=== PATIENT | female | born 1935 | race Caucasian/White ===

== ENCOUNTER 2017-12-24 13:20 | Inpatient (IN) | payer OTHER, MEDICARE ==
[~2017-12-24] VITALS: Ht 152.4 cm; Wt 53.4 kg
[~2017-12-24 13:20] MED LIST: TAB-TAB PO
[2017-12-24 13:35] VITALS: BP 136/74; PULSE 110; RESP 16; TEMP 98.7; O2SAT 95
[2017-12-24] MEDS ORDERED: ARIC23TA PO (13:50)
[2017-12-24 14:15] VITALS: BP_SYST 128; BP_SYST 134; BP_DIAS 69; BP_DIAS 83; RESP 16
[2017-12-24 14:45] VITALS: O2SAT 96
[2017-12-24] MEDS ORDERED: SODIUM CHLORID 0.9% 500 ML INJ 500 ML IV ONE (14:45)
[2017-12-24 15:03] LABS: AUTOMATED NEUTROPHIL # 8.2 TH/MM3 (1.8-7.7); BASOPHIL # 0.4 TH/MM3 (0-0.2); BASOPHIL % 3.6 % (0.0-2.0); EOSINOPHIL % 0.2 % (0.0-4.0); LYMPH % 11.5 % (9.0-44.0); LYMPHOCYTE # 1.2 TH/MM3 (1.0-4.8); MEAN CELL VOLUME 93.1 FL (80.0-100.0); MEAN CORPUSCULAR HEMOGLOBIN 31.1 PG (27.0-34.0); MEAN CORPUSCULAR HGB CONC 33.4 % (32.0-36.0); MEAN PLATELET VOLUME 9.2 FL (7.0-11.0); MONOCYTE # 0.6 TH/MM3 (0-0.9); NEUT % 78.7 % (16.0-70.0); PLATELET COUNT 276 TH/MM3 (150-450); RED CELL DISTRIBUTION WIDTH 13.7 % (11.6-17.2); WHITE BLOOD COUNT 10.4 TH/MM3 (4.0-11.0)
--- NOTE | 2017-12-24 15:07 | PD ---
HPI Chief Complaint: Dizziness Time Seen by Provider: 14:30 Travel History International Travel<30 days: No Contact w/Intl Traveler<30days: No Traveled to known affect area: No History of Present Illness HPI 82-year-old female that presents to the ED for evaluation of dizziness and fall. Patient had dizziness for the past couple days. Per patient this is new for her. Per family member this is new for her as well. She denies any chest pain or shortness of breath but she states that today she was walking and she started feeling very dizzy and lightheaded and she felt weak on her legs and fell backwards. Hit her head. Unclear if loss of consciousness but she is not sure. She states having some back pain as well as pelvic pain on the right side. No other injuries reported. Per patient the pain is 8 out of 10. Patient was partially cannot sit or stand without having severe dizziness. Patient did suffer a superficial abrasion to the right occipital head. Patient denies any headache. No blurry vision or double vision. No neck pain. No abdominal pain. No bowel movements or urinary issues. No numbness, tingling, weakness. PFSH Past Medical History Alzheimer's Disease: Yes Cardiovascular Problems: No High Cholesterol: Yes (ATTEMPTED TO TAKE STATIN DRUGS- DEVOLPED ALLERGIC REACTION) Cerebrovascular Accident: No Diminished Hearing: No Headaches: No Implanted Vascular Access Dvce: No Kidney Stones: Yes Musculoskeletal: No Psychiatric: No Respiratory: No Migraines: No Renal Failure: Yes (STAGE 4) Seizures: No Tetanus Vaccination: < 5 Years Influenza Vaccination: Yes Past Surgical History Abdominal Surgery: Yes (1999) Cardiac Surgery: No Endocrine Surgery: No Eye Surgery: Yes Oral Surgery: No Thoracic Surgery: No Other Surgery: Yes Social History Alcohol Use: No Tobacco Use: No Substance Use: No Allergies-Medications (Allergen,Severity, Reaction): Coded Allergies: lovastatin (Unverified Allergy, Mild, "STATINS" (FROM EMR), 12/24/17) Uncoded Allergies: STATINS (Allergy, Mild, 03/17/10) Reported Meds & Prescriptions Reported Meds & Active Scripts Active Reported Aricept (Donepezil) 23 Mg Tab 23 Mg PO HS Do not split, crushed or chewed. Review of Systems Except as stated in HPI: all other systems reviewed are Neg Physical Exam Narrative GENERAL: SKIN: Warm and dry. HEAD: Atraumatic. Normocephalic. Patient has a superficial abrasion to the right occipital head. No bleeding at this time. No laceration noted. EYES: Pupils equal and round 4 mm reactive to light and accommodation. No scleral icterus. No injection or drainage. ENT: No nasal bleeding or discharge. Mucous membranes pink and moist. Tongue is midline. No uvula deviation. NECK: Trachea midline. No JVD. CARDIOVASCULAR: Regular rate and rhythm. No murmurs, S3, S4. RESPIRATORY: No accessory muscle use. Clear to auscultation. Breath sounds equal bilaterally. GASTROINTESTINAL: Abdomen soft, non-tender, nondistended. Hepatic and splenic margins not palpable. MUSCULOSKELETAL: Extremities without clubbing, cyanosis, or edema. No obvious deformities. Full range of motion of the upper and lower extremities bilaterally. 2+ pulses bilaterally. No lumbar, thoracic, cervical spine tenderness to palpation. Patient does have reproducible pain on the pelvic area of the right side. Sensation intact bilaterally. NEUROLOGICAL: Awake and alert. No obvious cranial nerve deficits. Motor grossly within normal limits. Five out of 5 muscle strength in the arms and legs. Normal speech. Cannot assess gait as patient cannot stand without weakness to her legs or feeling she is going to passout. PSYCHIATRIC: Appropriate mood and affect; insight and judgment normal. Data Data Last Documented VS Vital Signs Date Time Temp Pulse Resp B/P (MAP) Pulse Ox O2 Delivery O2 Flow Rate FiO2 12/24/17 14:45 96 Room Air 12/24/17 14:15 91 16 94 16 12/24/17 13:35 98.7 Orders Orders Electrocardiogram (12/24/17 14:40) Complete Blood Count With Diff (12/24/17 14:40) Comprehensive Metabolic Panel (12/24/17 14:40) Ckmb (Isoenzyme) Profile (12/24/17 14:40) Troponin I (12/24/17 14:40) Prothrombin Time / Inr (Pt) (12/24/17 14:40) Act Partial Throm Time (Ptt) (12/24/17 14:40) Urinalysis - C+S If Indicated (12/24/17 14:40) Cath For Specimen (12/24/17 14:40) Magnesium (Mg) (12/24/17 14:40) Thyroid Stimulating Hormone (12/24/17 14:40) Chest, Single Ap (12/24/17 14:40) Ct Brain W/O Iv Contrast(Rout) (12/24/17 14:40) Iv Access Insert/Monitor (12/24/17 14:40) Ecg Monitoring (12/24/17 14:40) Oximetry (12/24/17 14:40) Orthostatic Vital Signs (12/24/17 14:40) Pelvis, Ap Only (Routine) (12/24/17 ) Spine, Lumbar Comp W/Obliq (12/24/17 ) Sodium Chlorid 0.9% 500 Ml Inj (Ns 500 M (12/24/17 14:45) CKMB (12/24/17 14:55) CKMB% (12/24/17 14:55) Urine Culture (12/24/17 15:10) Aspirin (Aspirin) (12/24/17 15:45) Ceftriaxone Inj (Rocephin Inj) (12/24/17 15:45) Place In Observation (12/24/17 ) Vital Signs (Adult) Q4H (12/24/17 16:03) Activity Oob With Assistance (12/24/17 16:03) Diet Regular Basic (12/24/17 Dinner) Sodium Chlor 0.9% 1000 Ml Inj (Ns 1000 M (12/24/17 16:03) Sodium Chloride 0.9% Flush (Ns Flush) (12/24/17 16:15) Sodium Chloride 0.9% Flush (Ns Flush) (12/24/17 21:00) Acetaminophen (Tylenol) (12/24/17 16:15) Ondansetron Inj (Zofran Inj) (12/24/17 16:15) Basic Metabolic Panel (Bmp) (12/25/17 06:00) Complete Blood Count With Diff (12/25/17 06:00) Pt Request For Service (12/24/17 16:03) Naloxone Inj (Narcan Inj) (12/24/17 16:15) Sennosides (Senokot) (12/24/17 16:15) Donepezil (Aricept) (12/24/17 21:00) Ceftriaxone Inj (Rocephin Inj) (12/25/17 09:15) Troponin I (12/24/17 18:03) Admit Order (Ed Use Only) (12/24/17 16:07) Labs Laboratory Tests Test 12/24/17 14:55 12/24/17 15:10 White Blood Count 10.4 TH/MM3 Red Blood Count 4.20 MIL/MM3 Hemoglobin 13.0 GM/DL Hematocrit 39.0 % Mean Corpuscular Volume 93.1 FL Mean Corpuscular Hemoglobin 31.1 PG Mean Corpuscular Hemoglobin Concent 33.4 % Red Cell Distribution Width 13.7 % Platelet Count 276 TH/MM3 Mean Platelet Volume 9.2 FL Neutrophils (%) (Auto) 78.7 % Lymphocytes (%) (Auto) 11.5 % Monocytes (%) (Auto) 6.0 % Eosinophils (%) (Auto) 0.2 % Basophils (%) (Auto) 3.6 % Neutrophils # (Auto) 8.2 TH/MM3 Lymphocytes # (Auto) 1.2 TH/MM3 Monocytes # (Auto) 0.6 TH/MM3 Eosinophils # (Auto) 0.0 TH/MM3 Basophils # (Auto) 0.4 TH/MM3 CBC Comment DIFF FINAL Differential Comment Prothrombin Time 10.3 SEC Prothromb Time International Ratio 1.0 RATIO Activated Partial Thromboplast Time 23.4 SEC Blood Urea Nitrogen 34 MG/DL Creatinine 2.00 MG/DL Random Glucose 122 MG/DL Total Protein 8.1 GM/DL Albumin 3.3 GM/DL Calcium Level 10.4 MG/DL Magnesium Level 2.2 MG/DL Alkaline Phosphatase 82 U/L Aspartate Amino Transf (AST/SGOT) 34 U/L Alanine Aminotransferase (ALT/SGPT) 25 U/L Total Bilirubin 0.5 MG/DL Sodium Level 138 MEQ/L Potassium Level 5.1 MEQ/L Chloride Level 104 MEQ/L Carbon Dioxide Level 27.8 MEQ/L Anion Gap 6 MEQ/L Estimat Glomerular Filtration Rate 24 ML/MIN Total Creatine Kinase 176 U/L Creatine Kinase MB 0.8 NG/ML Troponin I 0.12 NG/ML Thyroid Stimulating Hormone 3rd Gen 0.588 uIU/ML Urine Collection Type VOIDED Urine Color YELLOW Urine Turbidity SL CLOUDY Urine pH 7.0 Urine Specific [place] 1.015 Urine Protein 30 mg/dL Urine Glucose (UA) NEG mg/dL Urine Ketones NEG mg/dL Urine Occult Blood MOD Urine Nitrite NEG Urine Bilirubin NEG Urine Urobilinogen 0.2 MG/DL Urine Leukocyte Esterase LARGE Urine WBC 20-24 /hpf Urine WBC Clumps FEW Urine Bacteria MANY /hpf Microscopic Urinalysis Comment CULTURE INDICATED MDM Medical Decision Making Medical Screen Exam Complete: Yes Emergency Medical Condition: Yes Medical Record Reviewed: Yes Interpretation(s) CBC & BMP Diagram 12/24/17 14:55 Total Protein 8.1, Albumin 3.3 L, Calcium Level 10.4 H, Magnesium Level 2.2, Alkaline Phosphatase 82, Aspartate Amino Transf (AST/SGOT) 34, Alanine Aminotransferase (ALT/SGPT) 25, Total Bilirubin 0.5 UA shows possible UTI troponin of 0.12 CK WNL EKG shows sinus rhythm with no sign of acute ischemia or arrythmia read by me and attending. Last Impressions Head CT 12/24/17 1440 Signed Impressions: Service Date/Time: Sunday, December 24, 2017 14:58 - CONCLUSION: 1. Cephalhematoma over the right posterior high parietal region. No associated fracture or intracranial hemorrhage. 2. 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 Franklin Sakrar MD Differential Diagnosis Vertigo versus dizziness versus head injury versus dehydration versus ACS versus arrhythmia versus ICH versus syncope Narrative Course 82-year-old female that presents to the ED for evaluation of head injury and dizziness. Patient was properly examined and was found to have signs and symptoms of unclear etiology at this time. Patient is very dizzy with just sitting and standing. She is weak on her legs when she stands. Unclear etiology of the symptoms but we'll do imaging and labs. Patient agrees. Patient was given 500 bolus of fluid. Labs and imaging showed positive troponin and UTI. Patient told of results. Given aspirin. No chest pain. Will admit for further evaluation. patient and family agree with this. Case discussed with Dr Cruz who agrees to admision. Procedures EKG Prior to Arrival: No Diagnosis Primary Impression: Syncope, near Additional Impressions: UTI (urinary tract infection) Qualified Codes: N30.00 - Acute cystitis without hematuria Elevated troponin I level Admitting Information Admitting Physician Requests: Admit Salvador Malloy Dec 24, 2017 15:07
[2017-12-24 15:16] LABS: CHLORIDE 104 MEQ/L (98-107); SODIUM (NA) 138 MEQ/L (136-145)
[2017-12-24 15:17] LABS: PROTHROMBIN TIME - PATIENT 10.3 SEC (9.8-11.6)
--- NOTE | 2017-12-24 15:18 | RADRPT ---
EXAM DATE/TIME: 12/24/2017 14:58 [facility] COMPARISON: CT BRAIN W/O CONTRAST, March 17, 2010, 8:56. INDICATIONS : Dizziness. Fell and hit head. RADIATION DOSE: 62.07 CTDIvol (mGy) MEDICAL HISTORY : Hypercholesterolemia. Renal failure. SURGICAL HISTORY : None. ENCOUNTER: Initial ACUITY: 1 day PAIN SCALE: 5/10 LOCATION: cranial TECHNIQUE: Multiple contiguous axial images were obtained of the head. Using automated exposure control and adj ustment of the mA and/or kV according to patient size, radiation dose was kept as low as reasonably a chievable to obtain optimal diagnostic quality images. DICOM format image data is available electro nically for review and comparison. 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 No evidence of midline shift, mass lesion, hemorrhage o r acute infarction. No extra-axial fluid collections are seen. POSTERIOR FOSSA: The cerebellum and brainstem are intact. The 4th ventricle is midline. The cerebellopontine angle i s unremarkable. EXTRACRANIAL: The visualized portion of the orbits is intact. SKULL: The calvaria is intact. Cephalhematoma over the right posterior high parietal region No evidence of skull fracture. CONCLUSION: 1. Cephalhematoma over the right posterior high parietal region. No associated fracture or intracrani al hemorrhage. 2. 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 Franklin Sarkar MD on December 24, 2017 at 15:08 Board Certified Radiologist. This report was verified electronically.
[2017-12-24 15:21] LABS: ALBUMIN 3.3 GM/DL (3.4-5.0); BICARBONATE 27.8 MEQ/L (21.0-32.0); BLOOD UREA NITROGEN 34 MG/DL (7-18); CALCIUM 10.4 MG/DL (8.5-10.1); GLUCOSE,RANDOM 122 MG/DL (74-106); MAGNESIUM 2.2 MG/DL (1.5-2.5)
[2017-12-24 15:24] LABS: ALT (GPT) 25 U/L (10-53); AST (GOT) 34 U/L (15-37)
[2017-12-24 15:25] LABS: GLOMERULAR FILTRATION RATE 24 ML/MIN (>89)
[2017-12-24 15:25] LABS: BILIRUBIN, URINE NEG (NEG); BLOOD, URINE MOD (NEG); GLUCOSE,URINE NEG (NEG); KETONE, URINE NEG (NEG); NITRITE,URINE NEG (NEG); URINE COLOR YELLOW (YELLW/STRAW); URINE LEUKOCYTE ESTERASE LARGE (NEG)
[2017-12-24 15:26] LABS: TOTAL BILIRUBIN ADULT 0.5 MG/DL (0.2-1.0); TOTAL PROTEIN 8.1 GM/DL (6.4-8.2)
[2017-12-24 15:27] LABS: ALKALINE PHOSPHATASE 82 U/L (45-117)
[2017-12-24 15:30] LABS: TROPONIN I 0.12 NG/ML (0.02-0.05)
[2017-12-24 15:38] LABS: BACTERIA, URINE MANY /hpf; WHITE BLOOD CELL CLUMPS FEW
[2017-12-24] MEDS ORDERED: ASPIRIN 325 MG TAB PO ONE (15:45)
[2017-12-24] MEDS ORDERED: cefTRIAXone INJ 1,000 MG in SODIUM CHLORIDE 0.9% INJ 100 ML IV ONE (15:45)
--- NOTE | 2017-12-24 15:51 | RADRPT ---
EXAM DATE/TIME: 12/24/2017 15:11 [facility] COMPARISON: No previous studies available for comparison. INDICATIONS : Dizziness, fell to right side. MEDICAL HISTORY : Hypercholesterolemia. Renal failure. SURGICAL HISTORY : None. ENCOUNTER: Initial ACUITY: 1 day PAIN SCORE: 0/10 LOCATION: Bilateral chest FINDINGS: The lungs are clear. The heart is minimally enlarged. The pulmonary vascularity is normal. There is n o evidence for infiltrate or failure. The portion of the bony skeleton visualized is unremarkable. CONCLUSION: Compensated cardiomegaly otherwise negative Zeus Brantley MD FACR on December 24, 2017 at 15:50 Board Certified Radiologist. This report was verified electronically.
[2017-12-24] MEDS: SODIUM CHLOR 0.9% 1000 ML INJ 1,000 ML IV SCH (16:03)
--- NOTE | 2017-12-24 16:05 | RADRPT ---
EXAM DATE/TIME: 12/24/2017 15:11 [facility] COMPARISON: No previous studies available for comparison. INDICATIONS : Dizziness, fell to right side. MEDICAL HISTORY : None. SURGICAL HISTORY : None. ENCOUNTER: Initial ACUITY: 1 day PAIN SCORE: 5/10 LOCATION: Right pelvis FINDINGS: A single frontal view of the pelvis demonstrates no evidence of fracture. The bony pelvic ring is in tact. Bony mineralization is normal. The soft tissues are intact. Degenerative spurring at the SI j oints bilaterally. CONCLUSION: 1. 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 2. No fracture Franklin Sarkar MD on December 24, 2017 at 16:03 Board Certified Radiologist. This report was verified electronically.
--- NOTE | 2017-12-24 16:13 | RADRPT ---
EXAM DATE/TIME: 12/24/2017 15:11 [facility] COMPARISON: No previous studies available for comparison. INDICATIONS : Dizziness, fell to right side. Lower back pain. MEDICAL HISTORY : None. SURGICAL HISTORY : None. ENCOUNTER: Initial ACUITY: 1 day PAIN SCORE: 5/10 LOCATION: lumbar spine. FINDINGS: There are five non-rib bearing vertebral bodies. Vertebral body heights are maintained throughout wit hout fracture. Minimal grade 1 anterolisthesis of L3 on 4 and L4 on 5 multilevel facet hypertrophy. Timber Grader a calcification of the regional vasculature. 1.2 cm calcification in a paraspinal distribution may represent renal calculus. CONCLUSION: 1. Degenerative changes with multilevel facet hypertrophy and a grade 1 anterolisthesis of L3 on 4 an d L4 on 5. 2. No fracture. 3. Possible 1.2 cm left renal calculus. Franklin Sarkar MD on December 24, 2017 at 16:04 Board Certified Radiologist. This report was verified electronically.
[2017-12-24] MEDS ORDERED: SENNOSIDES 8.6 MG TAB PO PRN (16:15)
[2017-12-24] MEDS ORDERED: NALOXONE HCL 0.4 MG/ML AMP IV PUSH PRN (16:15)
[2017-12-24] MEDS ORDERED: SODIUM CHLORIDE 0.9% FLUSH 10 ML FLUSH IV FLUSH PRN (16:15)
[2017-12-24] MEDS ORDERED: ACETAMINOPHEN 325 MG TAB PO PRN (16:15)
--- NOTE | 2017-12-24 16:43 | HHI.HP ---
[facility] Primary Care Physician Maricruz Jensen MD Admission Diagnosis Syncope, dizziness, positive troponin, UTI Diagnoses: Chief Complaint: Dizziness Travel History International Travel<30 Days: No Contact w/Intl Traveler <30 Da: No Traveled to Known Affected Are: No History of Present Illness Patient is an 82-year-old with a history of dementia. She had an episode of dizziness yesterday and again today. She says she fell yesterday but it was not witnessed. Today she fell and hit her head and her back and was brought into the emergency room by emergency medical services with bleeding in her head. There is a large hematoma with laceration but no intracranial bleeding on imaging. Patient is alert oriented and without any findings of stroke clinically. The patient however is quite dizzy. She also has elevated troponin. She will be admitted to the hospital for further evaluation of severe dizziness and treatment of a urinary tract infection. Review of Systems Constitutional: DENIES: Diaphoretic episodes, Fatigue, Fever, Weight gain, Weight loss, Chills, Dizziness, Change in appetite, Night Sweats Endocrine: DENIES: Abnorml menstrual pattern, Heat/cold intolerance, Polydipsia , Polyuria, Polyphagia Eyes: DENIES: Blurred vision, Diplopia, Eye inflammation, Eye pain, Vision loss , Photosensitivity, Double Vision Ears, nose, mouth, throat: DENIES: Tinnitus, Hearing loss, Vertigo, Nasal discharge, Oral lesions, Throat pain, Hoarseness, Ear Pain, Running Nose, Epistaxis, Sinus Pain, Toothache, Odynophagia Respiratory: DENIES: Apneas, Cough, Snoring, Wheezing, Hemoptysis, Sputum production, Shortness of breath Cardiovascular: DENIES: Chest pain, Palpitations, Syncope, Dyspnea on Exertion , PND, Lower Extremity Edema, Orthopnea, Claudication Gastrointestinal: DENIES: Abdominal pain, Black stools, Bloody stools, Constipation, Diarrhea, Nausea, Vomiting, Difficulty Swallowing, Anorexia Genitourinary: DENIES: Abnormal vaginal bleeding, Dysmenorrhea, Dyspareunia, Sexual dysfunction, Urinary frequency, Urinary incontinence, Urgency, Hematuria , Dysuria, Nocturia, Vaginal discharge Musculoskeletal: COMPLAINS OF: Back pain, DENIES: Joint pain, Muscle aches, Stiffness, Joint Swelling, Neck pain Integumentary: DENIES: Abnormal pigmentation, Pruritus, Rash, Nail changes, Breast masses, Breast skin changes, Nipple discharge Hematologic/lymphatic: DENIES: Bruising, Lymphadenopathy Immunologic/allergic: DENIES: Eczema, Urticaria Neurologic: DENIES: Abnormal gait, Headache, Localized weakness, Paresthesias, Seizures, Speech Problems, Tremor, Poor Balance Psychiatric: DENIES: Anxiety, Confusion, Mood changes, Depression, Hallucinations, Agitation, Suicidal Ideation, Homicidal Ideation, Delusions Except as stated in HPI: all other systems reviewed are Neg Past Family Social History Past Medical History Dementia Kidney stones Chronic kidney disease stage III-IV Past Surgical History Lithotripsy Reported Medications Reviewed in the EMR, Aricept Allergies: Coded Allergies: lovastatin (Unverified Allergy, Mild, "STATINS" (FROM EMR), 12/24/17) Uncoded Allergies: STATINS (Allergy, Mild, 03/17/10) Active Ordered Medications Reviewed in the EMR Family History Both her parents lived into their late 90s Social History With her daughter and son, no tobacco or alcohol dependency Physical Exam Vital Signs Vital Signs Date Time Temp Pulse Resp B/P (MAP) Pulse Ox O2 Delivery O2 Flow Rate FiO2 12/24/17 14:45 96 Room Air 12/24/17 14:15 91 16 128/69 (88) 94 16 134/83 (100) 12/24/17 13:35 98.7 110 16 136/74 (94) 95 Physical Exam GENERAL: This is a well-nourished, well-developed patient, in no apparent distress. SKIN: No rashes, ecchymoses or lesions. Cool and dry. HEAD: Occipital hematoma, Normocephalic. No temporal or scalp tenderness. EYES: Pupils equal round and reactive. Extraocular motions intact. No scleral icterus. No injection or drainage. ENT: Nose without bleeding, purulent drainage or septal hematoma. Throat without erythema, tonsillar hypertrophy or exudate. Uvula midline. Airway patent. NECK: Trachea midline. No JVD or lymphadenopathy. Supple, nontender, no meningeal signs. CARDIOVASCULAR: Regular rate and rhythm without murmurs, gallops, or rubs. RESPIRATORY: Clear to auscultation. Breath sounds equal bilaterally. No wheezes , rales, or rhonchi. GASTROINTESTINAL: Abdomen soft, non-tender, nondistended. No hepato-splenomegaly , or palpable masses. No guarding. MUSCULOSKELETAL: Extremities without clubbing, cyanosis, or edema. No joint tenderness, effusion, or edema noted. No calf tenderness. Negative Homans sign bilaterally. NEUROLOGICAL: Awake and alert. Cranial nerves II through XII intact. Motor and sensory grossly within normal limits. Five out of 5 muscle strength in all muscle groups. Normal speech. Laboratory Laboratory Tests Test 12/24/17 14:55 12/24/17 15:10 White Blood Count 10.4 Red Blood Count 4.20 Hemoglobin 13.0 Hematocrit 39.0 Mean Corpuscular Volume 93.1 Mean Corpuscular Hemoglobin 31.1 Mean Corpuscular Hemoglobin Concent 33.4 Red Cell Distribution Width 13.7 Platelet Count 276 Mean Platelet Volume 9.2 Neutrophils (%) (Auto) 78.7 Lymphocytes (%) (Auto) 11.5 Monocytes (%) (Auto) 6.0 Eosinophils (%) (Auto) 0.2 Basophils (%) (Auto) 3.6 Neutrophils # (Auto) 8.2 Lymphocytes # (Auto) 1.2 Monocytes # (Auto) 0.6 Eosinophils # (Auto) 0.0 Basophils # (Auto) 0.4 CBC Comment DIFF FINAL Differential Comment Prothrombin Time 10.3 Prothromb Time International Ratio 1.0 Activated Partial Thromboplast Time 23.4 Blood Urea Nitrogen 34 Creatinine 2.00 Random Glucose 122 Total Protein 8.1 Albumin 3.3 Calcium Level 10.4 Magnesium Level 2.2 Alkaline Phosphatase 82 Aspartate Amino Transf (AST/SGOT) 34 Alanine Aminotransferase (ALT/SGPT) 25 Total Bilirubin 0.5 Sodium Level 138 Potassium Level 5.1 Chloride Level 104 Carbon Dioxide Level 27.8 Anion Gap 6 Estimat Glomerular Filtration Rate 24 Total Creatine Kinase 176 Creatine Kinase MB 0.8 Troponin I 0.12 Thyroid Stimulating Hormone 3rd Gen 0.588 Urine Collection Type VOIDED Urine Color YELLOW Urine Turbidity SL CLOUDY Urine pH 7.0 Urine Specific [employer] 1.015 Urine Protein 30 Urine Glucose (UA) NEG Urine Ketones NEG Urine Occult Blood MOD Urine Nitrite NEG Urine Bilirubin NEG Urine Urobilinogen 0.2 Urine Leukocyte Esterase LARGE Urine WBC 20-24 Urine WBC Clumps FEW Urine Bacteria MANY Microscopic Urinalysis Comment CULTURE INDICATED Date/Time Source Procedure Growth Status 12/24/17 15:10 Urine Random Urine Urine Culture Pending Received Result Diagram: 12/24/17 1455 12/24/17 1455 Imaging Last Impressions Head CT 12/24/17 1440 Signed Impressions: Service Date/Time: Sunday, December 24, 2017 14:58 - CONCLUSION: 1. Cephalhematoma over the right posterior high parietal region. No associated fracture or intracranial hemorrhage. 2. 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 Franklin Sarkar MD Chest X-Ray 12/24/17 1440 Signed Impressions: Service Date/Time: Sunday, December 24, 2017 15:11 - CONCLUSION: Compensated cardiomegaly otherwise negative Zeus Brantley MD FACR Pelvis X-Ray 12/24/17 0000 Signed Impressions: Service Date/Time: Sunday, December 24, 2017 15:11 - CONCLUSION: 1. 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 2. No fracture Franklin Sarkar MD Lumbar Spine X-Ray 12/24/17 0000 Signed Impressions: Service Date/Time: Sunday, December 24, 2017 15:11 - CONCLUSION: 1. Degenerative changes with multilevel facet hypertrophy and a grade 1 anterolisthesis of L3 on 4 and L4 on 5. 2. No fracture. 3. Possible 1.2 cm left renal calculus. MD Adonis Stevens VTE Risk Assessment [place]i VTE Risk Assessment: Mod/High Risk (score >= 2) VTE Pharm Contraindication: Active bleeding Caprini Risk Assessment Model Point Value = 1 Point Value = 2 Point Value = 3 Point Value = 5 Age 41-60 Minor surgery BMI > 25 kg/m2 Swollen legs Varicose veins or History of unexplained or recurrent spontaneous Oral contraceptives or hormone replacement Sepsis (< 1 month) Serious lung disease, including pneumonia (< 1 month) Abnormal pulmonary function Acute myocardial infarction Congestive heart failure (< 1 month) History of inflammatory bowel disease Medical patient at bed rest Age 61-74 Arthroscopic surgery Major open surgery (> 45 min) Laparoscopic surgery (> 45 min) Malignancy Confined to bed (> 72 hours) Immobilizing plaster cast Central venous access Age >= 75 History of VTE Family history of VTE Factor V Leiden Prothrombin [id number] Lupus anticoagulant Anticardiolipin antibodies Elevated serum homocysteine Heparin-induced thrombocytopenia Other congenital or acquired thrombophilia Stroke (< 1 month) Elective arthroplasty Hip, pelvis, or leg fracture Acute spinal cord injury (< 1 month) Prophylaxis Regimen Total Risk Factor Score Risk Level Prophylaxis Regimen 0-1 Low Early ambulation 2 Moderate Order ONE of the following: *Sequential Compression Device (SCD) *Heparin 5000 units SQ BID 3-4 Higher Order ONE of the following medications: *Heparin 5000 units SQ TID *Enoxaparin/Lovenox 40 mg SQ daily (WT < 150 kg, CrCl > 30 mL/min) *Enoxaparin/Lovenox 30 mg SQ daily (WT < 150 kg, CrCl > 10-29 mL/min) *Enoxaparin/Lovenox 30 mg SQ BID (WT < 150 kg, CrCl > 30 mL/min) AND/OR *Sequential Compression Device (SCD) 5 or more Highest Order ONE of the following medications: *Heparin 5000 units SQ TID (Preferred with Epidurals) *Enoxaparin/Lovenox 40 mg SQ daily (WT < 150 kg, CrCl > 30 mL/min) *Enoxaparin/Lovenox 30 mg SQ daily (WT < 150 kg, CrCl > 10-29 mL/min) *Enoxaparin/Lovenox 30 mg SQ BID (WT < 150 kg, CrCl > 30 mL/min) AND *Sequential Compression Device (SCD) Assessment and Plan Problem List: (1) Syncope, near ICD Code: R55 - Syncope and collapse Status: Acute Plan: Etiology unclear may be cardiogenic v tia v infection MRI brain pending Echo pending Follow-up treatment of urinary tract infection (2) Elevated troponin I level ICD Code: R74.8 - Abnormal levels of other serum enzymes Status: Acute Plan: Patient without any complaints of chest pain or shortness of breath. She has dementia and is difficult to get a history but per the daughter she has not had any other complaints. We will follow-up cardiac echo, repeat cardiac troponins. She would not prefer any invasive studies. EKG my review shows no ischemic changes consistent does not show ischemic changes (3) UTI (urinary tract infection) ICD Code: N39.0 - Urinary tract infection, site not specified Status: Acute Plan: Continue Rocephin IV and follow-up cultures (4) Hypercalcemia ICD Code: E83.52 - Hypercalcemia Plan: We will continue IV fluids and recheck Code Status DNR Discussed Condition With Patient, daughter, ERMD Physician Certification 2 Midnight Certification Type: Admission for Inpatient Services Order for Inpatient Services The services are ordered in accordance with Medicare regulations or non- Medicare payer requirements, as applicable. In the case of services not specified as inpatient-only, they are appropriately provided as inpatient services in accordance with the 2-midnight benchmark. Estimated LOS (days): 3 3 days is the estimated time the patient will need to remain in the hospital, assuming treatment plan goals are met and no additional complications. Post-Hospital Plan: Home (3) Problem Qualifiers (1) UTI (urinary tract infection): Qualified Codes: N30.00 - Acute cystitis without hematuria Annalisa Cruz MD Dec 24, 2017 16:42
[2017-12-24 16:45] VITALS: BP 138/80; PULSE 87; RESP 16; O2SAT 96
[2017-12-24 17:00] VITALS: BP 122/69; PULSE 86; RESP 15; TEMP 99.3; O2SAT 93
[2017-12-24 19:53] LABS: CALCIUM 9.4 MG/DL (8.5-10.1); TROPONIN I 0.11 NG/ML (0.02-0.05)
[2017-12-24 20:00] VITALS: BP 110/67; PULSE 91; RESP 16; TEMP 96.9; O2SAT 96
[2017-12-24] MEDS: SODIUM CHLORIDE 0.9% FLUSH 10 ML FLUSH IV FLUSH SCH (21:00)
[2017-12-24] MEDS: DONEPEZIL HCL 23 MG TAB PO SCH (21:29)
[2017-12-25] VITALS: BP 115/66; PULSE 83; RESP 16; TEMP 97.1; O2SAT 97
[2017-12-25] MEDS: SODIUM CHLOR 0.9% 1000 ML INJ 1,000 ML IV SCH ×3 (01:59→21:48)
[2017-12-25] MEDS: ONDANSETRON HCL 4 MG/2 ML VIAL IVP PRN ×2 (02:13→08:49)
[2017-12-25 06:39] LABS: AUTOMATED NEUTROPHIL # 7.1 TH/MM3 (1.8-7.7); BASOPHIL % 0.2 % (0.0-2.0); EOSINOPHIL % 0.5 % (0.0-4.0); HEMATOCRIT 34.5 % (35.0-46.0); HEMOGLOBIN 11.7 GM/DL (11.6-15.3); LYMPH % 11.8 % (9.0-44.0); MEAN CELL VOLUME 93.3 FL (80.0-100.0); MEAN CORPUSCULAR HEMOGLOBIN 31.6 PG (27.0-34.0); MEAN CORPUSCULAR HGB CONC 33.8 % (32.0-36.0); MEAN PLATELET VOLUME 9.1 FL (7.0-11.0); MONO % 5.5 % (0.0-8.0); MONOCYTE # 0.5 TH/MM3 (0-0.9); PLATELET COUNT 237 TH/MM3 (150-450); RED CELL DISTRIBUTION WIDTH 13.5 % (11.6-17.2); WHITE BLOOD COUNT 8.6 TH/MM3 (4.0-11.0)
[2017-12-25 06:54] LABS: CALCIUM 9.1 MG/DL (8.5-10.1)
[2017-12-25 06:58] LABS: CREATININE 1.7 MG/DL (0.50-1.00)
[2017-12-25 08:00] VITALS: BP_SYST 123; BP_SYST 142; BP_DIAS 71; BP_DIAS 91; PULSE 67; PULSE 85; RESP 16; TEMP 98.5; TEMP 99; O2SAT 100; O2SAT 96
[2017-12-25] MEDS: ACETAMINOPHEN/CODEINE 300 MG/30 MG TAB PO PRN ×2 (08:40→15:42)
[2017-12-25] MEDS: SODIUM CHLORIDE 0.9% FLUSH 10 ML FLUSH IV FLUSH SCH ×2 (08:40→21:00)
[2017-12-25] MEDS: cefTRIAXone INJ 1,000 MG in SODIUM CHLORIDE 0.9% INJ 100 ML IV SCH (08:41)
--- NOTE | 2017-12-25 09:44 | HHI.PR ---
Objective Vitals Vital Signs Date Time Temp Pulse Resp B/P (MAP) Pulse Ox O2 Delivery O2 Flow Rate FiO2 12/25/17 08:00 99.0 67 16 123/71 (88) 96 12/25/17 00:00 97.1 83 16 115/66 (82) 97 12/24/17 20:00 96.9 91 16 110/67 (81) 96 12/24/17 17:07 12/24/17 17:00 99.3 86 15 122/69 (86) 93 12/24/17 16:45 87 16 138/80 (99) 96 Room Air 12/24/17 14:45 96 Room Air 12/24/17 14:15 91 16 128/69 (88) 94 16 134/83 (100) 12/24/17 13:35 98.7 110 16 136/74 (94) 95 I/O 12/24/17 12/24/17 12/24/17 12/25/17 12/25/17 12/25/17 07:00 15:00 23:00 07:00 15:00 23:00 Intake Total 600 ml 240 ml Balance 600 ml 240 ml Intake Oral 240 ml IV Total 600 ml # Voids 3 1 # Bowel Movements 0 Result Diagram: 12/25/17 0605 12/25/17 0605 A/P Problem List: (1) Syncope, near ICD Code: R55 - Syncope and collapse Status: Acute (2) Elevated troponin I level ICD Code: R74.8 - Abnormal levels of other serum enzymes Status: Acute (3) UTI (urinary tract infection) ICD Code: N39.0 - Urinary tract infection, site not specified Status: Acute (4) Hypercalcemia ICD Code: E83.52 - Hypercalcemia Problem Qualifiers (1) UTI (urinary tract infection): Qualified Codes: N30.00 - Acute cystitis without hematuria Naomy Ansari Dec 25, 2017 09:44
[2017-12-25 11:00] VITALS: BP_SYST 125; BP_SYST 137; BP_SYST 141; BP_DIAS 85; BP_DIAS 88; BP_DIAS 96; PULSE 90; RESP 20; TEMP 96.7; O2SAT 96
--- NOTE | 2017-12-25 13:19 | HHI.PR ---
Subjective Remarks Patient seen and evaluated today in follow-up for dizziness. Patient awaiting MRI. On discussion with the CAT scan results and the family at bedside they now report there was an old stroke some years ago. Renal function appears improved with hydration. Objective Vitals Vital Signs Date Time Temp Pulse Resp B/P (MAP) Pulse Ox O2 Delivery O2 Flow Rate FiO2 12/25/17 09:57 18 12/25/17 08:00 98.5 85 16 142/91 (108) 100 12/25/17 00:00 97.1 83 16 115/66 (82) 97 12/24/17 20:00 96.9 91 16 110/67 (81) 96 12/24/17 17:07 12/24/17 17:00 99.3 86 15 122/69 (86) 93 12/24/17 16:45 87 16 138/80 (99) 96 Room Air 12/24/17 14:45 96 Room Air 12/24/17 14:15 91 16 128/69 (88) 94 16 134/83 (100) 12/24/17 13:35 98.7 110 16 136/74 (94) 95 I/O 12/24/17 12/24/17 12/24/17 12/25/17 12/25/17 12/25/17 07:00 15:00 23:00 07:00 15:00 23:00 Intake Total 600 ml 240 ml Balance 600 ml 240 ml Intake Oral 240 ml IV Total 600 ml # Voids 3 1 # Bowel Movements 0 Result Diagram: 12/25/17 0605 12/25/17 0605 Imaging Last Impressions Head CT 12/24/17 1440 Signed Impressions: Service Date/Time: Sunday, December 24, 2017 14:58 - CONCLUSION: 1. Cephalhematoma over the right posterior high parietal region. No associated fracture or intracranial hemorrhage. 2. 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 Franklin Sarkar MD Chest X-Ray 12/24/17 1440 Signed Impressions: Service Date/Time: Sunday, December 24, 2017 15:11 - CONCLUSION: Compensated cardiomegaly otherwise negative Zeus Brantley MD FACR Pelvis X-Ray 12/24/17 0000 Signed Impressions: Service Date/Time: Sunday, December 24, 2017 15:11 - CONCLUSION: 1. 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 2. No fracture Franklin Sarkar MD Lumbar Spine X-Ray 12/24/17 0000 Signed Impressions: Service Date/Time: Sunday, December 24, 2017 15:11 - CONCLUSION: 1. Degenerative changes with multilevel facet hypertrophy and a grade 1 anterolisthesis of L3 on 4 and L4 on 5. 2. No fracture. 3. Possible 1.2 cm left renal calculus. Franklin Sarkar MD Objective Remarks GENERAL: This is a well-nourished, well-developed patient, still very dizzy CARDIOVASCULAR: Regular rate and rhythm without murmurs, gallops, or rubs. RESPIRATORY: Clear to auscultation. Breath sounds equal bilaterally. No wheezes , rales, or rhonchi. GASTROINTESTINAL: Abdomen soft, non-tender, nondistended. Normal active bowel sounds MUSCULOSKELETAL: Extremities without clubbing, cyanosis, or edema. NEURO: Alert & Oriented x4 to person, place, time, situation. Moves all ext x4 A/P Problem List: (1) Syncope, near ICD Code: R55 - Syncope and collapse Status: Acute Plan: Etiology unclear may be cardiogenic v tia v infection MRI brain pending Echo pending Follow-up treatment of urinary tract infection (2) Elevated troponin I level ICD Code: R74.8 - Abnormal levels of other serum enzymes Status: Acute Plan: Patient without any complaints of chest pain or shortness of breath. She has dementia and is difficult to get a history but per the daughter she has not had any other complaints. We will follow-up cardiac echo, repeat cardiac troponins. She would not prefer any invasive studies. EKG my review shows no ischemic changes consistent does not show ischemic changes (3) UTI (urinary tract infection) ICD Code: N39.0 - Urinary tract infection, site not specified Status: Acute Plan: Continue Rocephin IV and follow-up cultures (4) Hypercalcemia ICD Code: E83.52 - Hypercalcemia Plan: resolved with iv hydration Problem Qualifiers (1) UTI (urinary tract infection): Qualified Codes: N30.00 - Acute cystitis without hematuria Annalisa Cruz MD Dec 25, 2017 13:19
--- NOTE | 2017-12-25 15:44 | RADRPT ---
EXAM DATE/TIME: 12/25/2017 15:08 [facility] COMPARISON: MRI BRAIN W/O CONTRAST, March 17, 2010, 13:56. INDICATIONS : Weakness. Fall. MEDICAL HISTORY : Renal failure, chronic. SURGICAL HISTORY : Renal stones. ENCOUNTER: Initial ACUITY: 2 day PAIN SCORE: 0/10 LOCATION: head TECHNIQUE: Multiplanar, multisequence MRI of the brain was performed without contrast. FINDINGS: CEREBRUM: The ventricles are normal for age. There is diffuse bilateral cortical atrophy. No evidence of midli ne shift, mass lesion, hemorrhage or acute infarction. No extraaxial fluid collections are seen. Th e pituitary gland and suprasellar cistern are normal in configuration. WHITE MATTER: Stable moderate chronic white matter changes are again demonstrated throughout the white matter track s. No significant change compared to 2009. POSTERIOR FOSSA: The cerebellum and brainstem are intact. The 4th ventricle is midline. The cerebellopontine angle is unremarkable. The cerebellar tonsils are normal in position. DIFFUSION IMAGING: No focal areas of restricted diffusion are seen. No evidence of acute infarction. EXTRACRANIAL: The visualized portions of the orbits and paranasal sinuses are unremarkable. CONCLUSION: 1. Diffuse bilateral cortical atrophy. 2. 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 Austin Stark MD on December 25, 2017 at 15:41 Board Certified Radiologist. This report was verified electronically.
--- NOTE | 2017-12-25 15:48 | ECHRPT ---
Indication: cva/tia CONCLUSIONS The left ventricular systolic function is normal with an estimated ejection fraction in the range of 55-60%. Mild concentric left ventricular hypertrophy. Trace mitral valve regurgitation. There is mild tricuspid valve regurgitation. BP: / HR: Rhythm: MEASUREMENTS (Male / Female) Normal Values Technical Quality:Technically difficult study 2D ECHO LV Diastolic Diameter PLAX 3.6 cm 4.2 - 5.9 / 3.9 - 5.3 cm LV Systolic Diameter PLAX 2.8 cm IVS Diastolic Thickness 1.3 cm 0.6 - 1.0 / 0.6 - 0.9 cm LVPW Diastolic Thickness 1.1 cm 0.6 - 1.0 / 0.6 - 0.9 cm LV Relative Wall Thickness 0.7 RV Internal Dim ED PLAX 2.5 cm M-MODE Aortic Root Diameter MM 3.0 cm LA Systolic Diameter MM 3.2 cm LA Ao Ratio MM 1.1 AV Cusp Separation MM 1.2 cm DOPPLER LV E' Lateral Velocity 9.7 cm/s LV E' Septal Velocity 9.1 cm/s TR Peak Velocity 289.0 cm/s TR Peak Gradient 33.4 mmHg Right Atrial Pressure 10.0 mmHg Pulmonary Artery Systolic Pressu 43.4 mmHg Right Ventricular Systolic Press 43.4 mmHg FINDINGS LEFT VENTRICLE Normal left ventricular size. The left ventricular systolic function is normal with an estimated ejection fraction in the range of 55-60%. Mild concentric left ventricular hypertrophy. No regional wall motion abnormalities are present. RIGHT VENTRICLE Normal right ventricular size and systolic function. LEFT ATRIUM The left atrial size is upper limits of normal. RIGHT ATRIUM The right atrial size is normal. ATRIAL SEPTUM Normal atrial septal thickness AORTA The aortic root and proximal ascending aorta are normal in size on limited imaging. MITRAL VALVE Structurally normal mitral valve. Trace mitral valve regurgitation. Mild mitral annular calcification. No mitral valve stenosis. AORTIC VALVE Trileaflet aortic valve. No aortic valve stenosis or regurgitation. Aortic valve sclerosis is present. TRICUSPID VALVE Structurally normal tricuspid valve. There is mild tricuspid valve regurgitation. The estimated pulmonary arterial pressure is 43.4 mmHg. PULMONARY VALVE No pulmonary valve regurgitation or stenosis. VESSELS The inferior vena cava is normal in size. PERICARDIUM No pericardial effusion. Burke Hemphill DO (Electronically Signed) Final Date:25 December 2017 15:46
[2017-12-25 16:00] VITALS: BP 138/76; PULSE 84; TEMP 97.3; O2SAT 95
--- NOTE | 2017-12-25 19:06 | EKG ---
Date Performed: 12/24/2017 Time Performed: 14:53:27 PTAGE: 82 years EKG: Sinus rhythm POSSIBLE LEFT ATRIAL ENLARGEMENT BORDERLINE ECG Since the prior tracing, there has been no significa nt change PREVIOUS TRACING : 03/17/2010 08.26 DOCTOR: Primitivo Macias Interpretating Date/Time 12/25/2017 19:04:03
[2017-12-25 20:00] VITALS: BP_SYST 129; BP_SYST 135; BP_DIAS 80; BP_DIAS 81; BP_DIAS 86; PULSE 81; PULSE 91; PULSE 97; RESP 20; TEMP 97.2; O2SAT 94; O2SAT 97; O2SAT 98
[2017-12-25] MEDS: DONEPEZIL HCL 23 MG TAB PO SCH (21:48)
[2017-12-26] VITALS: BP 110/64; PULSE 83; RESP 20; TEMP 98; O2SAT 95
[2017-12-26] MEDS: ACETAMINOPHEN/CODEINE 300 MG/30 MG TAB PO PRN ×3 (05:04→13:55)
[2017-12-26 08:00] VITALS: BP 136/89; PULSE 83; RESP 16; TEMP 97.9; O2SAT 97
[2017-12-26] MEDS ORDERED: MAGNESIUM HYDROXIDE SUSP 30 ML CUP PO PRN (09:15)
[2017-12-26] MEDS ORDERED: DOCUSATE SODIUM 50 MG/SENNA 8.6 MG TAB PO SCH (09:15)
[2017-12-26] MEDS ORDERED: SENNOSIDES 8.6 MG TAB PO PRN (09:15)
[2017-12-26] MEDS ORDERED: BISACODYL 10 MG SUPP RECTAL PRN (09:15)
[2017-12-26] MEDS: SODIUM CHLORIDE 0.9% FLUSH 10 ML FLUSH IV FLUSH SCH (09:29)
[2017-12-26] MEDS: cefTRIAXone INJ 1,000 MG in SODIUM CHLORIDE 0.9% INJ 100 ML IV SCH (09:29)
[2017-12-26] MEDS: SODIUM CHLOR 0.9% 1000 ML INJ 1,000 ML IV SCH (09:30)
--- NOTE | 2017-12-26 10:18 | HHI.PR ---
Subjective Remarks patient seen and evaluated for dizziness, likely due to uti a bit stronger today but not dizzy discussed with patient and daughter re SNF sort term Objective Vitals Vital Signs Date Time Temp Pulse Resp B/P (MAP) Pulse Ox O2 Delivery O2 Flow Rate FiO2 12/26/17 08:00 97.9 83 16 136/89 (105) 97 12/26/17 00:00 98.0 83 20 110/64 (79) 95 12/25/17 20:00 97 20 129/86 (100) 98 12/25/17 20:00 97.2 81 20 129/80 (96) 94 12/25/17 20:00 91 20 135/81 (99) 97 12/25/17 18:04 18 12/25/17 16:00 97.3 84 138/76 (96) 95 12/25/17 11:00 96.7 90 20 125/85 (98) 96 141/96 (111) 137/88 (104) I/O 12/25/17 12/25/17 12/25/17 12/26/17 12/26/17 12/26/17 07:00 15:00 23:00 07:00 15:00 23:00 Intake Total 240 ml 240 ml Balance 240 ml 240 ml Intake Oral 240 ml 240 ml # Voids 3 2 2 # Bowel Movements 0 Result Diagram: 12/25/17 0605 12/25/17 0605 Imaging Last Impressions Brain MRI 12/25/17 0000 Signed Impressions: Service Date/Time: Monday, December 25, 2017 15:08 - CONCLUSION: 1. Diffuse bilateral cortical atrophy. 2. 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 Austin Stark MD Head CT 12/24/17 1440 Signed Impressions: Service Date/Time: Sunday, December 24, 2017 14:58 - CONCLUSION: 1. Cephalhematoma over the right posterior high parietal region. No associated fracture or intracranial hemorrhage. 2. 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 Franklin Sarkar MD Chest X-Ray 12/24/17 1440 Signed Impressions: Service Date/Time: Sunday, December 24, 2017 15:11 - CONCLUSION: Compensated cardiomegaly otherwise negative Zeus Brantley MD FACR Pelvis X-Ray 12/24/17 0000 Signed Impressions: Service Date/Time: Sunday, December 24, 2017 15:11 - CONCLUSION: 1. 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 2. No fracture Franklin Sarkar MD Lumbar Spine X-Ray 12/24/17 0000 Signed Impressions: Service Date/Time: Sunday, December 24, 2017 15:11 - CONCLUSION: 1. Degenerative changes with multilevel facet hypertrophy and a grade 1 anterolisthesis of L3 on 4 and L4 on 5. 2. No fracture. 3. Possible 1.2 cm left renal calculus. Franklin Sarkar MD Objective Remarks GENERAL: This is a well-nourished, well-developed patient, less dizzy, stronger CARDIOVASCULAR: Regular rate and rhythm without murmurs, gallops, or rubs. RESPIRATORY: Clear to auscultation. Breath sounds equal bilaterally. No wheezes , rales, or rhonchi. GASTROINTESTINAL: Abdomen soft, non-tender, nondistended. Normal active bowel sounds MUSCULOSKELETAL: Extremities without clubbing, cyanosis, or edema. NEURO: Alert & Oriented x4 to person, place, time, situation. Moves all ext x4 A/P Problem List: (1) Syncope, near ICD Code: R55 - Syncope and collapse Status: Acute Plan: Etiology appears to be due to infection MRI brain shows chronic vascular changes Echo wnl Follow-up treatment of urinary tract infection (2) Elevated troponin I level ICD Code: R74.8 - Abnormal levels of other serum enzymes Status: Acute Plan: Patient without any complaints of chest pain or shortness of breath. She has dementia and is difficult to get a history but per the daughter she has not had any other complaints. We will follow-up cardiac echo, repeat cardiac troponins. She would not prefer any invasive studies. EKG my review shows no ischemic changes consistent does not show ischemic changes (3) UTI (urinary tract infection) ICD Code: N39.0 - Urinary tract infection, site not specified Status: Acute Plan: Continue Rocephin IV x3days (4) Hypercalcemia ICD Code: E83.52 - Hypercalcemia Plan: resolved with iv hydration Discharge Planning dc to snf when arrangements made Problem Qualifiers (1) UTI (urinary tract infection): Qualified Codes: N30.00 - Acute cystitis without hematuria Annalisa Cruz MD Dec 26, 2017 10:18
[2017-12-26 12:00] VITALS: BP 112/64; PULSE 89; RESP 14; TEMP 96.6; O2SAT 96
[2017-12-26] MEDS ORDERED: CIPR-9 PO (12:49)
--- NOTE | 2017-12-26 12:49 | HHI.DCPOC ---
Discharge Care Plan Diagnosis: (1) UTI (urinary tract infection) Goals to Promote Your Health * To prevent worsening of your condition and complications * To maintain your health at the optimal level Directions to Meet Your Goals Take your medications as prescribed Follow your dietary instruction Follow activity as directed Keep your appointments as scheduled Take your immunizations and boosters as scheduled If your symptoms worsen call your PCP, if no PCP go to Urgent Care Center or Emergency Room Smoking is Dangerous to Your Health. Avoid second hand smoke Call the 24-hour hour crisis hotline for domestic abuse at Annalisa Cruz MD Dec 26, 2017 12:49
[2017-12-26 15:19] VITALS: RESP 18
--- NOTE | 2017-12-26 15:19 | HHI.DS ---
Discharge Summary Admission Date Dec 25, 2017 at 13:00 Discharge Date: Dec 26, 2017 Admitting Diagnosis Syncope, dizziness, positive troponin, UTI (1) Syncope, near ICD Code: R55 - Syncope and collapse Status: Acute (2) Elevated troponin I level ICD Code: R74.8 - Abnormal levels of other serum enzymes Status: Acute (3) UTI (urinary tract infection) ICD Code: N39.0 - Urinary tract infection, site not specified Status: Acute (4) Hypercalcemia ICD Code: E83.52 - Hypercalcemia Procedures none Brief History - From Admission Patient is an 82-year-old with a history of dementia. She had an episode of dizziness yesterday and again today. She says she fell yesterday but it was not witnessed. Today she fell and hit her head and her back and was brought into the emergency room by emergency medical services with bleeding in her head. There is a large hematoma with laceration but no intracranial bleeding on imaging. Patient is alert oriented and without any findings of stroke clinically. The patient however is quite dizzy. She also has elevated troponin. She will be admitted to the hospital for further evaluation of severe dizziness and treatment of a urinary tract infection. CBC/BMP: 12/25/17 0605 12/25/17 0605 Significant Findings Laboratory Tests Test 12/24/17 14:55 12/24/17 15:10 12/24/17 18:20 12/25/17 06:05 Neutrophils (%) (Auto) 78.7 % (16.0-70.0) 82.0 % (16.0-70.0) Basophils (%) (Auto) 3.6 % (0.0-2.0) Neutrophils # (Auto) 8.2 TH/MM3 (1.8-7.7) Basophils # (Auto) 0.4 TH/MM3 (0-0.2) Activated Partial Thromboplast Time 23.4 SEC (24.3-30.1) Blood Urea Nitrogen 34 MG/DL (7-18) 32 MG/DL (7-18) 26 MG/DL (7-18) Creatinine 2.00 MG/DL (0.50-1.00) 2.00 MG/DL (0.50-1.00) 1.70 MG/DL (0.50-1.00) Random Glucose 122 MG/DL (74-106) Albumin 3.3 GM/DL (3.4-5.0) Calcium Level 10.4 MG/DL (8.5-10.1) Estimat Glomerular Filtration Rate 24 ML/MIN (>89) 24 ML/MIN (>89) 29 ML/MIN (>89) Troponin I 0.12 NG/ML (0.02-0.05) 0.11 NG/ML (0.02-0.05) Urine Protein 30 mg/dL (NEG-TRACE) Urine Occult Blood MOD (NEG) Urine Leukocyte Esterase LARGE (NEG) Urine WBC 20-24 /hpf (0-5) Urine WBC Clumps FEW (NONE) Urine Bacteria MANY /hpf (NONE) Red Blood Count 3.70 MIL/MM3 (4.00-5.30) Hematocrit 34.5 % (35.0-46.0) Imaging Last Impressions Brain MRI 12/25/17 0000 Signed Impressions: Service Date/Time: Monday, December 25, 2017 15:08 - CONCLUSION: 1. Diffuse bilateral cortical atrophy. 2. 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 Austin Stark MD Head CT 12/24/17 1440 Signed Impressions: Service Date/Time: Sunday, December 24, 2017 14:58 - CONCLUSION: 1. Cephalhematoma over the right posterior high parietal region. No associated fracture or intracranial hemorrhage. 2. 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 Franklin Sarkar MD Chest X-Ray 12/24/17 1440 Signed Impressions: Service Date/Time: Sunday, December 24, 2017 15:11 - CONCLUSION: Compensated cardiomegaly otherwise negative Zeus Brantley MD FACR Pelvis X-Ray 12/24/17 0000 Signed Impressions: Service Date/Time: Sunday, December 24, 2017 15:11 - CONCLUSION: 1. 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 2. No fracture Franklin Sarkar MD Lumbar Spine X-Ray 12/24/17 0000 Signed Impressions: Service Date/Time: Sunday, December 24, 2017 15:11 - CONCLUSION: 1. Degenerative changes with multilevel facet hypertrophy and a grade 1 anterolisthesis of L3 on 4 and L4 on 5. 2. No fracture. 3. Possible 1.2 cm left renal calculus. Franklin Sarkar MD PE at Discharge GENERAL: This is a well-nourished, well-developed patient, less dizzy, stronger CARDIOVASCULAR: Regular rate and rhythm without murmurs, gallops, or rubs. RESPIRATORY: Clear to auscultation. Breath sounds equal bilaterally. No wheezes , rales, or rhonchi. GASTROINTESTINAL: Abdomen soft, non-tender, nondistended. Normal active bowel sounds MUSCULOSKELETAL: Extremities without clubbing, cyanosis, or edema. NEURO: Alert & Oriented x4 to person, place, time, situation. Moves all ext x4 Pt update on day of discharge Please see daily progress note Hospital Course Patient seen and evaluated in follow-up for dizziness and this appears to be due to urinary tract infection. Overall improved with treatment of urinary tract infection. Stroke workup was unremarkable. Patient did have some elevated cardiac enzymes and no further workup was intended based on discussion with family and patient's desire for non-conservative therapy. Pt Condition on Discharge: Stable Discharge Disposition: Discharge to SNF Discharge Time: <= 30 minutes Discharge Instructions DIET: Follow Instructions for: Diabetic Diet Activities you can perform: Full Weight Bearing New Medications: Ciprofloxacin (Cipro) 500 Mg Tab 500 MG PO BID for Infection, #2 TAB 0 Refills Continued Medications: Donepezil (Aricept) 23 Mg Tab 23 MG PO HS, TAB Do not split, crushed or chewed. Annalisa Cruz MD Dec 26, 2017 15:19
== END 2017-12-26 16:03 | DRG 690 ==
LOC: PHEFT 13:20 → PHEDA 16:08 → PH3A 17:00 → OBSVTOIN 12-25 13:00
PROVIDERS: ADMIT Hospitalist; ATTEND Hospitalist
DX: N30.00 Acute cystitis without hematuria (principal); N18.4 Chronic kidney disease, stage 4 (severe); G93.89 Other specified disorders of brain; G30.9 Alzheimer's disease, unspecified; S00.83XA Contusion of other part of head, initial encounter; R10.2 Pelvic and perineal pain; M54.9 Dorsalgia, unspecified; E78.00 Pure hypercholesterolemia, unspecified; R74.8 Abnormal levels of other serum enzymes; R55 Syncope and collapse; E83.52 Hypercalcemia; Z66 Do not resuscitate; M19.90 Unspecified osteoarthritis, unspecified site; M43.16 Spondylolisthesis, lumbar region; W18.39XA Other fall on same level, initial encounter; Z87.442 Personal history of urinary calculi; Z86.73 Personal history of transient ischemic attack (TIA), and cerebral infarction without residual deficits
CPT/HCPCS: 70450; 70551; 71045; 72110; 72170; 80048; 80053; 81001; 82550; 82552; 83735; 84443; 84484; 85025; 85610; 85730; 87077; 87086; 87186; 93005; 93306; 96365; 96376; G0378; G8987-GP; G8988-GP; J0696; J2405; J7030; J7040